=== PATIENT | male | born 1975 | race Caucasian/White ===

== ENCOUNTER 2023-04-29 08:41 | Outpatient (CLI) | payer OTHER, SELFPAY ==
--- NOTE | 2023-04-29 08:48 | XR_ITS ---
FINAL REPORT CLINICAL HISTORY: ddd, f/u thoracic back fx, pain FINDINGS: THORACIC SPINE Three views were obtained. There are mild degenerative changes with osteophytes. No definite fracture is identified. The disc spaces are well preserved. There is no malalignment. IMPRESSION: No definite fracture identified. If indicated, MRI could better evaluate. THORACIC SPINE Two views demonstrate no acute fracture. There are mild degenerative changes osteophytes. There is straightening of the lumbar spine. There is no malalignment. IMPRESSION: Mild degenerative changes. Reviewed, Interpreted and Dictated by Dick Saldana III, MD Transcribed by Andree Redd Authenticated and [facility]
== END 2023-04-29 23:59 ==
PROVIDERS: PCP Nurse Practitioner Family; Visit Provider Chiropractor
DX: M51.37 Other intervertebral disc degeneration, lumbosacral region (principal); S22.009A Unspecified fracture of unspecified thoracic vertebra, initial encounter for closed fracture
CPT/HCPCS: 72083